=== PATIENT | female | born 1965 | race Caucasian/White ===

== ENCOUNTER 2018-08-26 07:46 | Emergency (ER) | payer MEDICAID ==
[~2018-08-26] VITALS: Ht 160 cm; Wt 69.6 kg
[2018-08-26 07:50] VITALS: BP 133/76
== END 2018-08-26 10:19 | disposition home or self-care (01) ==
LOC: ED 07:46
DX: L02.211 Cutaneous abscess of abdominal wall (principal)
CPT/HCPCS: 90715; J2001

== ENCOUNTER 2018-08-28 12:21 | Emergency (ER) | payer MEDICAID ==
[~2018-08-28] VITALS: Ht 162.6 cm; Wt 69.4 kg
[2018-08-28 12:25] VITALS: BP 122/74; Ht 162.6 cm; Wt 69.4 kg
== END 2018-08-28 13:32 | disposition home or self-care (01) ==
LOC: ED 12:21
DX: L02.231 Carbuncle of abdominal wall (principal)